=== PATIENT | male | born 1955 | race Caucasian/White ===

== ENCOUNTER 2021-04-04 08:27 | Emergency (ER) | payer MEDICARE, SELFPAY ==
[2021-04-04 08:28] VITALS: BP 114/74; PULSE 75; RESP 20; TEMP 36.6; O2SAT 100
--- NOTE | 2021-04-04 08:49 | ED.GENADULT ---
HPI - General Adult General Chief complaint: Skin/Abscess/Foreign Body Stated complaint: poss shingles Source: patient Mode of arrival: ambulatory Limitations: no limitations History of Present Illness HPI narrative: Patient presents for evaluation of pruritic rash to bilateral flanks, abdomen, bilateral upper extremities for last 5 days. No new lotions, soaps, detergents, topical products. He thought his symptoms were related to herpes zoster. He is unsure whether he has had chickenpox in the past. No difficulty breathing or swallowing. He applied some baby oil and an unknown topical cream. The cream seemed to help his symptoms a bit. No additional complaints or concerns. Related Data Home Medications Medication Instructions Recorded Confirmed atorvastatin 10 mg PO DAILY 04/04/21 04/04/21 lisinopril 20 mg PO DAILY 04/04/21 04/04/21 metformin 1,000 mg PO DAILY 04/04/21 04/04/21 Allergies Allergy/AdvReac Type Severity Reaction Status Date / Time No Known Allergies Allergy Verified 04/04/21 08:43 Review of Systems Review of Systems: CONSTITUTIONAL: Denies fever, chills, or sweats. EYES: Denies visual changes, redness, or discharge. ENT: Denies rhinorrhea, congestion, sore throat, or otalgia. CARDIOVASCULAR: Denies chest pain, palpitations, or edema. RESPIRATORY: Denies cough or dyspnea. GASTROINTESTINAL: Denies abdominal pain, nausea, vomiting, or diarrhea. GENITOURINARY: Denies dysuria or hematuria. SKIN: Reports pruritic rash to the abdomen, bilateral flanks, bilateral upper extremities. MUSCULOSKELETAL: Denies back pain, joint pain, or myalgia. NEUROLOGIC: Denies headache, numbness, dizziness, or weakness. PSYCHIATRIC: Denies anxiety or depression. [facility] Past Medical History Medical History (Updated 04/04/21 @ 08:54 by IZZY Winters, ANASTASIIA) Diabetes Hyperlipidemia Hypertension Surgical History Surgical History No pertinent past surgical history Family History Family History Mother Medical history non-contributory Social History Social History Smoking status: Never smoker Substance use: never Gender identity (if verbalized by the patient): Male Sexual Orientation (if Verbalized by the Patient): Straight or Heterosexual Spiritual care concerns: No Exam Narrative: GENERAL: Well-appearing, well-nourished, and in no acute distress. HEAD: Normocephalic, atraumatic. EYES: PERRLA and EOMI. ENT: Nares clear, no rhinorrhea or epistaxis. Mucous membranes moist. Oropharynx without tonsillar hypertrophy exudate or other lesions. Bilateral TMs pearly giang nonbulging NECK: Supple. No adenopathy or masses. No carotid bruits or JVD CHEST: Clear to auscultation. No respiratory distress. No wheezes rales or rhonchi HEART: Regular rate and rhythm. No murmur heard. Normal peripheral pulses. ABDOMEN: Soft, nontender, nondistended, normal active bowel sounds. EXTREMITIES: Normal range of motion. No edema. SKIN: Flat erythematous rash to abdomen, bilateral flanks, bilateral forearms and antecubital regions with some scaling/dry excoriated skin NEURO: No focal deficits. Alert and oriented x3. PSYCH: Normal mood and affect. Course Course Emergency Course: This is a 65-year-old male who presented with complaints of rash to abdomen, bilateral flanks and bilateral upper extremities for last 5 days. This appears to be either tinea or some type of allergic dermatitis. We will provide him with two scripts, one for ketoconazole and another for kenalog. I did not provide him with steroids as he is diabetic. He should follow up with his PCP this coming week and return for worsening symptoms. Pt in agreement with plan of care Level of Care: Express Care Visit Vital Signs Vital signs: Vital Signs Temperature 36.6 C 04/04/21
== END 2021-04-04 09:00 | disposition home or self-care (01) ==
PROVIDERS: Emergency Provider Nurse Practitioner
DX: L30.9 Dermatitis, unspecified (principal); E11.9 Type 2 diabetes mellitus without complications; E78.5 Hyperlipidemia, unspecified; I10 Essential (primary) hypertension
CPT/HCPCS: 99213; G0463